=== PATIENT | male | born 1970 | race Caucasian/White ===

== ENCOUNTER 2020-06-17 10:43 | Day surgery (SDC) | payer BC ==
[~2020-06-17 10:43] MED LIST: ESCITALOPRAM OX20 MG PO; OMEP40CA45 PO
[2020-06-17] MEDS ORDERED: IV RINGERS,LACTATED 1000ML 1,000 ML IV ONE (11:45)
[2020-06-17] MEDS ORDERED: LIDOCAINE 2% PF 5 ML VIAL. ONE (11:54)
[2020-06-17] MEDS ORDERED: PROPOFOL 10 MG/ML (20ML) VIAL. IV ONE (11:54)
[2020-06-17] MEDS ORDERED: IV RINGERS,LACTATED 1000ML 1,000 ML IV SCH (12:00)
[2020-06-17 13:10] VITALS: BP 114/75
== END 2020-06-17 13:32 | disposition home or self-care (01) ==
LOC: ENDOS 10:43
PROVIDERS: ATTEND Internal Medicine Gastroenterology
DX: R19.7 Diarrhea, unspecified (principal); K92.1 Melena; K64.0 First degree hemorrhoids; K57.30 Diverticulosis of large intestine without perforation or abscess without bleeding; K63.5 Polyp of colon; K63.89 Other specified diseases of intestine; F32.9 Major depressive disorder, single episode, unspecified; Z79.899 Other long term (current) drug therapy; Z98.890 Other specified postprocedural states; Z72.89 Other problems related to lifestyle; Z20.822 Contact with and (suspected) exposure to COVID-19
CPT/HCPCS: 45380; 87426; 88305; J2704

== ENCOUNTER → 2020-06-23 | Outpatient (CLI) | payer BC ==
[2020-06-17 13:10] VITALS: BP 114/75
[~2020-06-23] MED LIST changes: +OXYC1TAB15 PO
== END ==
LOC: LAB 09:09
PROVIDERS: ATTEND Surgery
DX: Z01.812 Encounter for preprocedural laboratory examination (principal); K43.9 Ventral hernia without obstruction or gangrene; Z20.822 Contact with and (suspected) exposure to COVID-19
CPT/HCPCS: U0003; U0005

== ENCOUNTER 2020-06-25 06:03 | Day surgery (SDC) | payer BC ==
[~2020-06-25] VITALS: Ht 167.6 cm; Wt 78.5 kg
[~2020-06-25 06:03] MED LIST changes: +ACETAMINOPHEN 500 MG TABLET PO PRN; +HYDROmorphone 2 MG/ML VIAL IVP PRN; +IV RINGERS,LACTATED 1000ML 1,000 ML IV SCH; +MORPHINE SULFATE 2 MG/ML VIAL. IVP PRN; -OXYC1TAB15 PO; +PROCHLORPERAZINE 10 MG/2 ML VIAL. IVP PRN; +ceFAZolin SODIUM IV Push 1 GM VIAL. IVP PRN; +fentaNYL PF VIAL 100 MCG/2 ML VIAL IVP PRN
[2020-06-25] MEDS ORDERED: BUPIVACAINE-EPI 0.25% 30 ML VIAL KIT. ONE (06:55)
[2020-06-25] MEDS ORDERED: LIDOCAINE 2% PF 5 ML VIAL. ONE (07:05)
[2020-06-25] MEDS ORDERED: PROPOFOL 10 MG/ML (20ML) VIAL. IV ONE (07:05)
[2020-06-25] MEDS ORDERED: SUCCINYLCHOLINE 200 MG/10 ML VIAL. ONE (07:07)
[2020-06-25] MEDS ORDERED: fentaNYL PF VIAL 100 MCG/2 ML VIAL ONE ×2 (07:07→09:03)
[2020-06-25] MEDS ORDERED: ROCURONIUM 50 MG/5 ML VIAL. ONE (07:07)
--- NOTE | 2020-06-25 07:39 | PDOC1 ---
History and Physical Date of Admission Date of Admission DATE: 06/25/20 TIME: 07:37 Identification/Chief Complaint Chief Complaint Abdominal pain Source Source: Patient History of Present Illness History of Present Illness 49-year-old male with complaints of a painful bulge at his umbilicus been present for about 6 weeks Past Medical History GI: GERD Psych: Depression Past Surgical History Past Surgical History: No pertinent history Family History Family History: No Significant Social History Smoke: No ALCOHOL: rare Drugs: None Current Medications Current Medications Current Medications Fentanyl Citrate (Fentanyl 2ml Vial) 25 mcg PRN Q5MIN PRN IVP MILD PAIN 1-3; Start 06/25/20 at 06:00; Stop 06/25/20 at 20:00 Fentanyl Citrate (Fentanyl 2ml Vial) 50 mcg PRN Q5MIN PRN IVP MODERATE PAIN 4- 6; Start 06/25/20 at 06:00; Stop 06/25/20 at 20:00 Morphine Sulfate (Morphine Sulfate) 1 mg PRN Q10MIN PRN IVP SEVERE PAIN 7-10; Start 06/25/20 at 06:00; Stop 06/25/20 at 20:00 Ringer's Solution 1,000 ml @ 30 mls/hr Q24H IV Last administered on 06/25/20at 06:35; Start 06/25/20 at 06:00; Stop 06/25/20 at 17:59 Hydromorphone HCl (Dilaudid) 0.5 mg PRN Q10MIN PRN IVP SEVERE PAIN 7-10, 2nd CHOICE; Start 06/25/20 at 06:00; Stop 06/25/20 at 20:00 Prochlorperazine Edisylate (Compazine) 5 mg PACU PRN PRN IVP NAUSEA, MRX1; Start 06/25/20 at 06:00; Stop 06/25/20 at 20:00 Acetaminophen (Tylenol) 1,000 mg OC PROC PRN PO PRE-OP Last administered on 06/25/20at 06:35; Start 06/25/20 at 06:00; Stop 06/25/20 at 18:00 Cefazolin Sodium (Ancef) 1 gm 1X PREOP PRN IVP PRIOR TO PROCEDURE; Start 06/25/20 at 06:00; Stop 06/25/20 at 18:00 Bupivacaine HCl/ Epinephrine Bitart (Sensorcain-Epi 0.25% Kit) 30 ml STK-MED ONCE .ROUTE ; Start 06/25/20 at 06:55; Stop 06/25/20 at 06:55; Status DC Lidocaine HCl (Lidocaine Pf 2% Vial) 5 ml STK-MED ONCE .ROUTE ; Start 06/25/20 at 07:05; Stop 06/25/20 at 07:06; Status DC Propofol (Diprivan) 200 mg STK-MED ONCE IV ; Start 06/25/20 at 07:05; Stop 06/25/20 at 07:06; Status DC Succinylcholine Chloride (Anectine) 200 mg STK-MED ONCE .ROUTE ; Start 06/25/20 at 07:07; Stop 06/25/20 at 07:07; Status DC Rocuronium [place] (Zemuron) 50 mg STK-MED ONCE .ROUTE ; Start 06/25/20 at 07:07; Stop 06/25/20 at 07:07; Status DC Fentanyl Citrate (Fentanyl 2ml Vial) 100 mcg STK-MED ONCE .ROUTE ; Start 06/25/20 at 07:07; Stop 06/25/20 at 07:07; Status DC Mineral Oil (Muri-Lube) 10 ml 1X ONCE MC ; Start 06/25/20 at 07:45; Stop 06/25/20 at 07:46 Active Scripts Active Reported Omeprazole 40 Mg Capsule.dr 1 Cap PO DAILY Escitalopram Oxalate 20 Mg Tablet 1 Tab PO DAILY Allergies Allergies: Coded Allergies: No Known Drug Allergies (Unverified , 06/23/20) ROS Gastrointestinal: Yes Abdominal Pain Physical Exam General: Alert, Oriented X3, Cooperative, No acute distress HEENT: Atraumatic, EOMI Lungs: Clear to auscultation, Normal air movement Heart: RRR, no murmurs Abdomen: Normal bowel sounds, Soft, Other (Tender bulge at the umbilicus) Rectal Exam: not examined Extremities: No edema Skin: No significant lesion Neuro: Normal speech Psych/Mental Status: Mental status NL Vitals Vitals Vital Signs Date Time Temp Pulse Resp B/P (MAP) Pulse Ox O2 Delivery O2 Flow Rate FiO2 06/25/20 06:27 97.0 62 20 98 97.0 06/25/20 06:25 156/84 Room Air VTE Prophylaxis Ordered VTE Prophylaxis Devices: Yes VTE Pharmacological Prophylaxi: Contraindicated Assessment/Plan Assessment/Plan Ventral hernia plan robotic assisted laparoscopic repair Justifications for Admission Other Justification QUYNH HANSEN MD June 25, 2020 07:39
[2020-06-25] MEDS ORDERED: MINERAL OIL for SURGERY 10 ML VIAL. MC ONE (07:45)
[2020-06-25] MEDS ORDERED: DEXAMETHASONE SOD PHOS 20 MG/5 ML VIAL. ONE (07:53)
[2020-06-25] MEDS ORDERED: NEOSTIGMINE METHYLSULFATE 5 MG/5 ML SYRINGE. ONE (08:05)
[2020-06-25] MEDS ORDERED: GLYCOPYRROLATE 1 MG/5 ML VIAL. ONE (08:05)
[2020-06-25] MEDS ORDERED: ONDANSETRON PF 4 MG/2 ML VIAL. ONE (08:05)
[2020-06-25] MEDS ORDERED: PHENYLEPHRINE in 0.9% NACL PF 1 MG/10 ML SYRINGE. IV ONE (08:09)
--- NOTE | 2020-06-25 08:39 | PDOC4 ---
Operative Note Operative Note Date: June 252020 at 836 Preoperative diagnosis: Ventral hernia incarcerated Postop diagnosis: Same Procedure: Robotic assisted laparoscopic ventral hernia repair with mesh Surgeon: Jann Specimen: None Dictation: Patient is a 50-year-old gentleman with complaints of a painful bulge at his umbilicus been present for a number years. The procedure of robotic assisted laparoscopic ventral hernia repair with mesh was explained to the patient detail risk benefits were also discussed including bleeding infection injury to intra-abdominal contents possible necessitating further open operations alternatives to this procedure also discussed with the patient who seemed to understand and gave both verbal and written consent to have the procedure performed. Patient was taken to the operating room placed in the supine position general anesthesia was initiated once patient was sleeping intubated his abdomen was prepped and draped usual sterile fashion using ChloraPrep. Area in the left upper quadrant was injected with quarter percent Marcaine with epinephrine incision was made with a blade scalpel and a 5 mm Visiport was placed under direct visualization into the abdomen creating pneumoperitoneum 5 mm scope was placed and the abdomen was inspected was noted the ventral hernia small neck but had incarcerated omentum within it. A 8 mm [place]ia port was placed under direct visualization the left midabdomen a millimeter da [place]ia port was placed in the left lower abdomen and the 5 mm Visiport was changed out for a millimeter da [place]ia port. The da [place]ia robot was brought and docked all port sites surgeon went to the robotic console using a grasper and Endo Eitan scissors the hernia contents and sac were reduced. The hernia defect was then closed with a running 2 OV lock nonabsorbable suture. Ventral light ST mesh was then placed over the hernia defect this was sewn in place with a 2 OV lock absorbable suture and the preperitoneal fat was closed over the mesh with a running 20V lock. Sutures were removed from the abdomen the da [place]ia robot was undocked from all port sites the pneumoperitoneum was reduced all ports were removed the port sites were all closed with 4 subcuticular Monocryl Mastisol Steri-Strips and island dressings were applied. Patient was awakened extubated operating room taken to recovery in stable condition all sponge instrument needle counts listed as correct estimated blood loss 5 mL QUYNH HANSEN MD June 25, 2020 08:39
--- NOTE | 2020-06-25 08:41 | DISCH ---
DISCHARGE INSTRUCTIONS Condition on Discharge Condition on Discharge: Stable Activity After Discharge Activity Instructions for Disc: Avoid exertion Other activity instructions: No lifting more than 20 pounds for 2 weeks Diet after Discharge Diet after Discharge: Regular Wound Incision Care Other wound/incision instructi: Radha shower in 24 hours Contacting the [facility] after DC Call your doctor for: If your condition worsens Follow-Up Follow up with: Dr. Hansen in 2 weeks QUYNH HANSEN MD June 25, 2020 08:41
[2020-06-25] MEDS ORDERED: OXYC1TAB15 PO (08:57)
[2020-06-25] MEDS ORDERED: oxyCODONE/APAP 5/325 1 TAB TABLET PO ONE ×2 (09:00)
[2020-06-25] MEDS: fentaNYL PF VIAL 100 MCG/2 ML VIAL IVP PRN ×2 (09:04→09:11)
[2020-06-25 09:32] VITALS: BP 116/86
== END 2020-06-25 10:09 | disposition home or self-care (01) ==
LOC: SURG 06:03 → EDUNIT# 07:30 → SURG 10:09
PROVIDERS: ATTEND Surgery
DX: K43.6 Other and unspecified ventral hernia with obstruction, without gangrene (principal); F32.9 Major depressive disorder, single episode, unspecified; Z79.899 Other long term (current) drug therapy; Z98.890 Other specified postprocedural states; Z72.89 Other problems related to lifestyle
CPT/HCPCS: 49653; A4364; A4930; A6219; C1781; J0330; J0690; J1100; J2370; J2405; J2704; J2710; J3010; J3490; S2900; A4657